=== PATIENT | male | born 1985 | race Asian ===

== ENCOUNTER 2016-06-14 14:20 | Outpatient (CLI) | payer OTHER | END 2016-06-14 14:21 | disposition home or self-care (01) | DX: G47.10 Hypersomnia, unspecified (principal); G47.8 Other sleep disorders; R06.83 Snoring ==

== ENCOUNTER 2016-07-11 19:35 | Outpatient (CLI) | payer OTHER | END 2016-07-11 19:36 | disposition home or self-care (01) | DX: G47.10 Hypersomnia, unspecified (principal); G47.8 Other sleep disorders ==

== ENCOUNTER 2016-07-25 08:46 | Outpatient (CLI) | payer OTHER | END 2016-07-25 08:47 | disposition home or self-care (01) | DX: G47.10 Hypersomnia, unspecified (principal); R06.83 Snoring ==

== ENCOUNTER 2016-08-31 10:22 | Outpatient (CLI) | payer OTHER | END 2016-08-31 10:23 | disposition home or self-care (01) | LOC: SC 10:22 | PROVIDERS: ATTEND Nurse Practitioner Family | DX: G47.10 Hypersomnia, unspecified (principal); R53.83 Other fatigue | CPT/HCPCS: 99212; 99213 ==

== ENCOUNTER 2017-08-16 08:00 | Outpatient (CLI) | payer BC, OTHER ==
[2017-08-16 12:43] LABS: BASOPHILS % (AUTO) 0.6 %; EOSINOPHILS # (AUTO) 0.2 10^3/uL (0.0-0.7); EOSINOPHILS % (AUTO) 2.6 %; HGB - HEMOGLOBIN 14.6 g/dL (14.0-18.0); LYMPHOCYTES % (AUTO) 32.2 %; MEAN CORPUSCULAR HGB CONC 34.8 g/dL (32.0-36.0); MEAN CORPUSCULAR VOLUME 89.1 fL (80.0-94.0); MEAN PLATELET VOLUME 7.7 fL (7.4-11.4); MONOCYTES # (AUTO) 0.9 10^3/uL (0.0-1.0); NEUTROPHILS # (AUTO) 3.2 10^3/uL (1.5-6.6); NEUTROPHILS % (AUTO) 50.6 %; PLT - PLATELET COUNT 250 10^3/uL (130-450); RED CELL DISTRIBUTION WIDTH 12.1 % (12.0-15.0); WHITE BLOOD COUNT 6.3 x10^3/uL (4.8-10.8)
[2017-08-16 13:04] LABS: ALBUMIN 3.9 g/dL (3.2-5.5); ALBUMIN/GLOBULIN RATIO 1.1 (1.0-2.2); ALKALINE PHOSPHATASE 53 IU/L (42-121); ALT ALANINE AMINOTRANSFERASE 20 IU/L (10-60); AST ASPARTATE AMINOTRANSFERASE 34 IU/L (10-42); BILIRUBIN,TOTAL 0.9 mg/dL (0.2-1.0); BUN - BLOOD UREA NITROGEN 19 mg/dL (6-20); CALCIUM 9.1 mg/dL (8.5-10.3); CARBON DIOXIDE - CO2 28 mmol/L (21-32); CHLORIDE 103 mmol/L (101-111); CHOL/HDL RATIO 2.8 (<5.0); CHOLESTEROL 137 mg/dL; GFR - MDRD 88 (>89); GLUCOSE 101 mg/dL (70-100); HDL CHOLESTEROL 49 mg/dL; SODIUM 137 mmol/L (135-145); TOTAL PROTEIN 7.6 g/dL (6.7-8.2)
[2017-08-16 13:37] LABS: LDL CHOLESTEROL,DIRECT 70 mg/dL; LDLD/HDL RATIO 1.4 (<3.6)
[2017-08-17 15:20] LABS: HIV AG/AB 4TH GEN NON-REACTIVE (NON-REACTIVE)
== END 2017-08-16 08:01 | disposition home or self-care (01) ==
LOC: LAB.N 08:00
PROVIDERS: ATTEND Nurse Practitioner Gerontology
DX: E29.1 Testicular hypofunction (principal); Z13.9 Encounter for screening, unspecified; Z11.3 Encounter for screening for infections with a predominantly sexual mode of transmission
CPT/HCPCS: 36415; 80050; 80061; 81599; 83721; 84402; 84403; 86592; 86593; 86780; 87389; 87491; 87591